=== PATIENT | female | born 1975 | race Caucasian/White ===

== ENCOUNTER → 2020-01-19 | Outpatient (CLI) | payer BC ==
--- NOTE | 2020-01-19 13:05 | RADIOLOGY REPORT (SQ) ---
EXAM DESCRIPTION: COOKIE SWALLOW IMAGES COMPLETED DATE/TIME: 01/19/2020 10:07 am REASON FOR STUDY: DYSPHASIA R13.10 DYSPHAGIA, UNSPECIFIED COMPARISON: None. TECHNIQUE: Videofluoroscopic swallowing examination was performed in conjunction with speech patholo gy. Videofluoroscopic imaging was obtained and reviewed and these are the findings: RADIATION DOSE: Fluoro time 1.04 minutes 1 images saved to PACS. LIMITATIONS: None FINDINGS: The patient was brought into the fluoro room and placed upright on a modified barium swall ow chair. The patient was then given multiple consistencies mixed with barium to swallow under live fluoroscopic video guidance. According to the Speech Pathologist there was no penetration or aspirat ion. Please refer to the speech pathology report for further details. IMPRESSION: NO EVIDENCE OF PENETRATION OR ASPIRATION. PLEASE SEE SPEECH PATHOLOGIST REPORT FOR OTHER FINDINGS AND RECOMMENDATIONS. COMMENT: None Quality ID [id number]: Final reports for procedures using fluoroscopy that document radiation exposure maia brittny, or exposure time and number of fluorographic images (if radiation exposure indices are not avail able) TECHNICAL DOCUMENTATION: JOB ID: [id number] 2010 [employer]- All Rights Reserved Reading location - IP/workstation name: [id number]
--- NOTE | 2020-01-20 11:59 | ST Modified Barium Swallow ---
Recommendation - Recommendations Recommendations: Pt's swallow is WNL, recommend a regular/thin diet. No penetration or aspiration observed on this study. Medical Diagnoses - Medical Diagnoses Medical Diagnosis Description & ICD-10 Code(s): R13.10 Other Medical Diagnoses/Co-Morbidities: No other significant medical hx reported ST Modified Barium Swallow - General Date: 01/19/20 Referring Physician: Dr. oKlton Brewster Risks/Precautions: None Date of Onset: 11/07/19 Reason for Referral: Pt is having instances of choking and has required the heimlich x2 - History History obtained from: Patient -: Medical Medications: control pill (she was unable to state which type), Zosyn, adderall, metoprolol, zoloft Allergies: Reports food sensitivity to dairy, soy, gluten, and is undergoing testing for further sensitivity. - Functional Status Prior Functional Status: INDEPENDENT: ADL - Subjective Patient/caregiver goal(s): safe swallow Cognitive-Linguistic Function: WNL Speech Intelligibility: WNL Current Nutritional Means: PO Current PO diet: Regular - Reports choking on solids, sometimes decreasing airflow Pain: 0/5 - Objective Assessment: Upright - Food Trials Used Food trials used: Thin liquids, [place] thick liquids, Pureed, Regular - Barium tablet with thin liquid The patient: Was Able to Self Feed - Oral-Motor Skills Dentition: Full - Assessment Oral prep: Normal Labial closure: Adequate Oral stage: Age appropriate Oral Stage: No residue seen post swallow. No premature spillage seen. - Pharyngeal Stage Initiation of Pharyngeal Stage Reflex: Normal Pre-swallow pooling in valleculae: None Pre-Swallow pooling in pyriforms: None Reduced Thyro-Hyoid approximation: No Reduced epiglottic excursion: No Reduced pharyngeal peristalsis/contraction: No Post-swallow residulas vallecular: None Post-Swallow residuals in pyriforms: None Post-Swallow Residuals: no residuals Reduced Cricopharyngeal opening: No Pharyngeal Stage Comments: WNL given her age. No penetration or aspiration seen on this study across textures. - Esophageal Stage Cricopharyngeal Function: Normal Upper Esophageal Transit: Normal Esophageal stasis/dysmotility: No - Fall Risk Assessment Medications/Conditions that increase fall risks include: Antidepressants, sedatives, anti-arrhythmic, diuretic, benzodiazipenes, neuroleptics. BP regulation problems, cardiac problems, balance or gait deficits, neurological problems. Is patient considered at risk for falls: no Fall Risk Actions Taken: No action needed - Behavioral Observations During evaluation process patient: was pleasant Mental Status: Alert & Oriented X3 - Treatment / Educational Needs: Treatment/Education Needs: Treatment consisted of patient education on the role of the Speech Pathologist. Patient's plan of care and golas were communicated as well as scheduling and attendance policies. Recommendations for initial home program were shared. Patient demonstrated understanding and verbalized agreement. - Impression/Summary Risk of Aspiration: Minimal Risk of nutritional compromise: WNL - Recommendations Solid diet recommendations: Regular Liquid Diet Modification: Thin Strict aspiration precautions: Yes Pt/Family education and followup with MD: Yes Dysphagia therapy with [employer]: no Reflux Precautions: Taught to Patient Recommended techniques: Fully Upright During Meal, Small Bites and Sips, Alternate Bites/Sips Supervision: Independent Information, Precautions and Recommendations: Patient (Verbal) - Plan of Care Patient to follow-up with referring physician: No Strategies to optimize patient understanding include:: ongoing assessment of educational needs, implementation of educational strategies, and re-education. - - -: Thank you for the opportunity to work with this patient and his/her family. Should you have any questions about this patient's plan or progress, I can be reached at [phone].
== END ==
LOC: RAD 08:17
PROVIDERS: ATTEND Internal Medicine Pulmonary Disease
DX: R13.10 Dysphagia, unspecified (principal)
CPT/HCPCS: 74230